=== PATIENT | female | born 1990 | race Caucasian/White ===

== ENCOUNTER 2018-07-30 16:27 | Day surgery (SDC) | payer OTHER ==
[2018-07-30 17:18] VITALS: BMI 37.0
--- NOTE | 2018-07-30 17:21 | PDOC.EVN ---
Event Note - Event Note Event Note: Patient seen at bedside. H&P dictated. ACOG Jun 2018 Gestational Hypertension and Preeclampsia data shared with the patient. Labs in process.
--- NOTE | 2018-07-30 17:35 | HP ---
TIME OF EVALUATION: 1654 until 170. LOCATION: Labor and Delivery in LDR bed 5. REASON FOR EVALUATION: The patient is sent from the office by Dr. Teague for blood pressure evaluation. EGA: 31 weeks and 6 days. EDC: September 25, 2018. HISTORY OF PRESENT ILLNESS: In brief, this is a 27-year-old, , 3, para 2 with two prior vaginal births. The first was complicated by preeclampsia and induction at 30 weeks, the second was spontaneous at 36 weeks with subsequent shoulder dystocia. It is thought that the gestational age calculation was incorrectly assigned at 36 weeks for this child as a birthweight was 8 pounds and 4 ounces. She has discussed a primary with her primary [facility] provider if this child goes to term. She was sent from the office to Labor and Delivery for blood pressure in the office of 150/90, and a history of preeclampsia in the past. She is on low-dose baby aspirin according to ACOG guidelines. She has no associated signs or symptoms. REVIEW OF SYSTEMS: Complete review of systems completed and as per HPI. PAST MEDICAL HISTORY: No diabetes, no chronic hypertension. ALLERGIES: VICODIN, WHICH GIVES HER SKIN RASH/ITCHING. 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 Her last obstetrical ultrasound was last week in the office and showed the baby in a cephalic presentation. PHYSICAL EXAMINATION: VITAL SIGNS: Blood pressure is 150/90, and she is afebrile. GENERAL: Clinically, she is in no acute distress. ABDOMEN: Soft, but no cervical exam was performed as she has no evidence of labor. monitor; heart tones were in the 140s to 150s with moderate variability. Tocodynamometer does not show any contraction pattern. The heart tracing is reactive for the gestational age as she is under 32 weeks. ASSESSMENT: This is a 27-year-old, , 3, para 2, at an EGA of 31 weeks and 6 days with a history of preeclampsia with her first delivery, who was sent for blood pressure of 150/90. She is on low-dose aspirin. She is here, asymptomatic, for a blood pressure evaluation and workup. PLAN: 1. I have discussed with her the ACOG guidelines and management plan for hypertension in . Delivery will be considered if blood pressure is persistent at greater than 160/110. I have also discussed magnesium sulfate and steroids for lung protection if induction is necessary. For now, we will do the following: a. Order CMP and CBC. b. Urine protein to creatinine ratio. c. Ultrasound will not be done because an ultrasound was done recently. If blood pressures are in the severe range, we may consider an ultrasound here for record. d. Steroids and magnesium sulfate will be given if severe and if delivery seemed eminent. 2. Again, the society of Maternal- Medicine and ACOG guidelines were discussed with her regarding hypertensive disorders of . Job ID: [id number] [id number]
[2018-07-30 17:46] LABS: Hemoglobin 12.5 g/dL (12.0-16.0); Mean Corpuscular HGB CONC 33.8 g/dL (32.0-36.0); Mean Corpuscular Hemoglobin 30.4 pg (27.0-31.0); Mean Corpuscular Volume 89.7 fL (78.0-98.0); Platelet Count 197 thou/uL (130-400); Red Blood Cell (RBC) Count 4.11 mill/uL (4.20-5.40); White Blood Cell (WBC) Count 10.1 thou/uL (4.8-10.8)
[2018-07-30 17:50] LABS: Creatinine, Urine 125.35 mg/dL (47-110)
[2018-07-30 18:04] LABS: ALT (SGPT) 15 U/L (8-55); AST (SGOT) 32 U/L (5-34); Albumin 3.7 g/dL (3.5-5.0); Alkaline Phosphatase 66 U/L (40-150); Anion Gap 16 mmol/L (10-20); BUN (Urea Nitrogen) 6 mg/dL (7.0-18.7); Bilirubin, Total Less than 0.2 mg/dL (0.2-1.2); Calc. Creatinine Clearance 212 mL/min (70-130); Calcium 9.2 mg/dL (7.8-10.44); Carbon Dioxide 18 mmol/L (22-29); Chloride 105 mmol/L (98-107); Estimated GFR-MDRD Greater than 90; Globulin 3.7 g/dL (2.4-3.5); Glucose 101 mg/dL (70-105); Potassium 4.1 mmol/L (3.5-5.1); Protein, Total 7.4 g/dL (6.0-8.3); Sodium 135 mmol/L (136-145)
--- NOTE | 2018-07-30 18:48 | PDOC.EVN ---
Event Note - Event Note Event Note: CBC and CMP normal UP: CR stable per Dr teague at 0.[address] Teague, do outpatient 24 hour urine collection and follow up in office Thursday
== END 2018-07-30 19:12 | disposition home or self-care (01) ==
LOC: L&D/OP 16:27
PROVIDERS: ATTEND Student in an Organized Health Care Education/Training Program
DX: O13.3 Gestational [pregnancy-induced] hypertension without significant proteinuria, third trimester (principal); O98.513 Other viral diseases complicating pregnancy, third trimester; B00.9 Herpesviral infection, unspecified; O99.343 Other mental disorders complicating pregnancy, third trimester; F41.9 Anxiety disorder, unspecified; Z3A.31 31 weeks gestation of pregnancy; Z88.5 Allergy status to narcotic agent; Z79.82 Long term (current) use of aspirin; Z79.899 Other long term (current) drug therapy
CPT/HCPCS: 36415; 80053; 82570; 84156; 85027; 86780; 87389

== ENCOUNTER 2018-08-02 17:28 | Inpatient (IN) | payer OTHER ==
[2018-08-02 18:04] VITALS: BMI 37.0
[2018-08-02] MEDS ORDERED: Promethazine HCl 25 MG/ML VIAL IM PRN (18:52)
[2018-08-02] MEDS ORDERED: Docusate 100 MG CAP PO PRN (18:52)
[2018-08-02] MEDS ORDERED: Ondansetron PF 4 MG/2 ML Vial IVP PRN (18:52)
[2018-08-02] MEDS ORDERED: Zolpidem Tartrate 5 MG TAB PO PRN (18:52)
[2018-08-02] MEDS ORDERED: Acetaminophen 500 MG TAB PO PRN ×2 (18:52→18:58)
--- NOTE | 2018-08-02 19:04 | PDOC.LDHP ---
Labor and Delivery H&P Chief complaint: other (elevated blood pressure and proteinuria) HPI: 27yo at 32w2d by LMP sent from clinic for elevated blood pressures in mild range and 3+ proteinuria on UA dip. Pt was evaluated last Thursday for PIH and had normal labs with PCR of 0.35 (baseline was 0.33). Pt was sent home with instructions to monitor BP and do 24hr urine. She collected her urine for 13 hours but even this she said she discarded some of the urine and total volume was 200cc. Slight dull DEMARCO. On baby ASA. Has hx of PIH in first delivered at 30wk. Current gestational age (weeks): 32 Due date: 09/25/18 Dating criteria: last menstrual period Grav: 3 Para: 2 OB History Details: h/o PIH delivered at 30w first h/o PTL delivered at 36w second c/b shoulder dystocia, no injury or 4th degree. Baby weighed 8lb4oz. Current complications: preeclampsia without severe features Abnormal US findings: No Past Medical History: Tourettes, Hypothyroidism, Hx HSV, Anxiety Current medications: pre- vitamins, other (levothyroxine 112mcg daily, methyldopa 250mg po bid, valtrex 500mg po bid, asa 81mg po daily) Previous surgical history: none Allergies/Adverse Reactions: Allergies Allergy/AdvReac Type Severity Reaction Status Date / Time hydrocodone [From Vicodin] AdvReac Verified 07/30/18 17:09 Social history: none - Physical Exam Vital signs reviewed and normal: yes General: NAD Heart: RRR Lungs: CTAB Abdomen: gravid Extremeties: no edema FHT: category 1 - OB Labs Blood type: O RH: positive Antibody Screen: negative HIV: negative RPR: negative HEPSAg: negative 1 hour GCT: positive 3 hour GTT: negative GBS: unknown Urine drug screen: negative Rubella: immune - Assessment Elevated blood pressures and proteinuria, rule out Preeclampsia - Plan -: PIH labs 24hr urine serial bps Dex for FLM Qshift NST, BPP/DIVYA while in house Cont home meds Ok for floor status.
[2018-08-02] MEDS ORDERED: Dexamethasone 4 mg/ml Vial ONE (19:42)
--- NOTE | 2018-08-02 19:49 | ULT ---
OB ULTRASOUND AND BIOPHYSICAL PROFILE: 08/02/2018 TECHNIQUE: Multiple longitudinal and transverse images of an intrauterine are obtained using a Multi-H ertz curvilinear transducer. FINDINGS: Real-time, color-flow, and spectral wave-form Doppler analysis demonstrates a viable intrauterine pre gnancy, with the fetus in a cephalic presentation. The placenta is anterior. No evidence of placent al abruption or previa seen. Cardiac activity measures 140 beats per minute. Cervical length measures 3.5 cm. Amniotic fluid index measures 7.9 cm. BIOMETRICS: BIPARIETAL DIAMETER: 82 mm (32 weeks 5 days) HEAD CIRCUMFERENCE: 288 mm (32 weeks 3 days) ABDOMINAL CIRCUMFERENCE: 280 mm (32 weeks 3 days) FEMUR LENGTH: 61 mm (31 weeks 4 days) COMPOSITE AGE: 32 weeks 0 days ESTIMATED DATE OF DELIVERY: 09/27/2018 ESTIMATED WEIGHT: 1925 g, plus or minus 285 g BIOPHYSICAL PROFILE: TONE: 2 BREATHIN MOVEMENT: 2 AMNIOTIC FLUID VOLUME: 2 COMPOSITE: 8/8 IMPRESSION: 1. Biophysical profile measures 8/8. 2. Cardiac activity is visualized. The fetus is in a cephalic presentation and is viable. POS: [facility]
--- NOTE | 2018-08-02 19:49 | ULT ---
Please see accompanying dictation for OB ultrasound. Biophysical profile measures 02/03. POS: [facility]
[2018-08-02] MEDS: Dexamethasone 4 mg/ml Vial IM SCH (19:51)
[2018-08-02 20:18] LABS: Hemoglobin 11.9 g/dL (12.0-16.0); Mean Corpuscular HGB CONC 34.8 g/dL (32.0-36.0); Mean Corpuscular Hemoglobin 30.8 pg (27.0-31.0); Mean Corpuscular Volume 88.5 fL (78.0-98.0); Platelet Count 210 thou/uL (130-400); RBC Distribution Width 12.1 % (11.5-14.5); Red Blood Cell (RBC) Count 3.87 mill/uL (4.20-5.40); White Blood Cell (WBC) Count 11.9 thou/uL (4.8-10.8)
[2018-08-02 20:40] LABS: ALT (SGPT) 9 U/L (8-55); AST (SGOT) 13 U/L (5-34); Albumin 3.7 g/dL (3.5-5.0); Alkaline Phosphatase 68 U/L (40-150); Anion Gap 13 mmol/L (10-20); BUN (Urea Nitrogen) 5 mg/dL (7.0-18.7); Bilirubin, Total 0.3 mg/dL (0.2-1.2); Calc. Creatinine Clearance 224 mL/min (70-130); Carbon Dioxide 24 mmol/L (22-29); Chloride 104 mmol/L (98-107); Estimated GFR-MDRD Greater than 90; Globulin 3.1 g/dL (2.4-3.5); Glucose 76 mg/dL (70-105); Potassium 3.7 mmol/L (3.5-5.1); Protein, Total 6.8 g/dL (6.0-8.3); Sodium 137 mmol/L (136-145)
[2018-08-02 20:59] LABS: Syphilis Antibody Nonreactive (Nonreactive); Syphilis Antibody Index 0.04 S/CO (<1.00 Non-Reactive)
[2018-08-02] MEDS ORDERED: Levothyroxine Sodium 112 MCG TAB PO SCH (21:30)
[2018-08-02] MEDS: valACYclovir 500 MG TAB PO SCH (22:25)
[2018-08-03 01:20] LABS: HBSAg Index 0.21 S/CO (0-0.99); Hep B Surf Ag Non-Reactive S/CO (NonReactive)
--- NOTE | 2018-08-03 07:46 | PDOC.EVN ---
Event Note - Event Note Event Note: HD #2 S: Pt denies PIH sx. Good FM, no VB LOF. Has had incr in ctx overnight and c/ o heartburn. O: VSSAF, BP all wnl NAD RRR CTAB S/nt/gravid No e/c/c NST pending this am A/P 27yo at 32w3d by LMP here for r/o PIH BP wnl, no sx PIH, labs wnl 24hr urine in progress, clinic UA with 3+ protein yesterday Cont q shift NST, DIVYA S=D, nl KIRSTIE ceph, BPP 10/10 Dex 2/4 this am for FLM If remains stable once 24hr urine finished will DC home with close outpt follow up and return for completion of dexamethasone injections
[2018-08-03] MEDS: Dexamethasone 4 mg/ml Vial IM SCH ×2 (08:25→18:29)
[2018-08-03] MEDS: valACYclovir 500 MG TAB PO SCH (08:26)
[2018-08-03] MEDS ORDERED: Prenatal Vitamin 1 TAB PO SCH (09:00)
[2018-08-03 16:19] VITALS: BP 127/70; TEMP 98.3
[2018-08-03 17:10] LABS: Urine Total Volume 2675 mL (600-1600)
[2018-08-03 17:38] LABS: Protein - 24 Hr 455 mg/24 hr (Less than 300); Protein, Urine 17 mg/dL (1-14)
[2018-08-03 17:39] LABS: 24 Hr Creatinine 1184.76 mg/24 hr (710-1650); Creatinine, Urine 44.29 mg/dL (47-110)
[2018-08-03] MEDS ORDERED: Levothyroxine Sodium 112 MCG TAB PO SCH (21:00)
== END 2018-08-03 18:38 | disposition home or self-care (01) | DRG 832 ==
LOC: L&D/OP 17:28 → 3SE 19:41
PROVIDERS: ADMIT Student in an Organized Health Care Education/Training Program; ATTEND Student in an Organized Health Care Education/Training Program
DX: O14.93 Unspecified pre-eclampsia, third trimester (principal); O98.513 Other viral diseases complicating pregnancy, third trimester; Z3A.32 32 weeks gestation of pregnancy; O99.283 Endocrine, nutritional and metabolic diseases complicating pregnancy, third trimester; E03.9 Hypothyroidism, unspecified; O99.343 Other mental disorders complicating pregnancy, third trimester; F41.9 Anxiety disorder, unspecified; O99.353 Diseases of the nervous system complicating pregnancy, third trimester; B00.9 Herpesviral infection, unspecified; F95.2 Tourette's disorder; Z79.899 Other long term (current) drug therapy; Z88.8 Allergy status to other drugs, medicaments and biological substances
CPT/HCPCS: 36415; 59025; 76805; 76819; 80053; 82570; 84156; 85027; 86780; 86850; 86900; 86901; 87081; 87340; 87389; 99284; 99285; J1100

== ENCOUNTER 2018-08-04 08:04 | Day surgery (SDC) | payer OTHER ==
[2018-08-04 08:48] VITALS: BMI 34.2
[2018-08-04] MEDS ORDERED: Betamet Acet/Betamet Na Ph 30 MG/5 ML VIAL IM SCH (09:00)
[2018-08-04] MEDS ORDERED: Dexamethasone 4 mg/ml Vial ONE ×2 (09:01→09:18)
== END 2018-08-04 09:05 | disposition home health service (06) ==
LOC: L&D/OP 08:04
PROVIDERS: ATTEND Student in an Organized Health Care Education/Training Program
DX: Z29.8 Encounter for other specified prophylactic measures (principal); Z79.82 Long term (current) use of aspirin; Z79.899 Other long term (current) drug therapy; Z88.5 Allergy status to narcotic agent
CPT/HCPCS: 96372; 99282; J1100

== ENCOUNTER 2018-08-16 00:28 | Inpatient (IN) | payer OTHER ==
[2018-08-16 01:14] VITALS: BMI 37.4
[2018-08-16] MEDS ORDERED: NIFEdipine 10 MG CAP ONE (01:27)
[2018-08-16] MEDS ORDERED: NIFEdipine 10 MG CAP PO SCH (01:30)
[2018-08-16] MEDS ORDERED: Calcium Gluc 4.6 MEQ/10 ML (100 MG/ML) SLOW IVP PRN (01:32)
[2018-08-16] MEDS ORDERED: Promethazine HCl 25 MG/ML VIAL IM PRN ×2 (01:32→18:29)
--- NOTE | 2018-08-16 01:38 | PDOC.LDHP ---
Labor and Delivery H&P Chief complaint: other (States incresaing BPs Ptaint of Dr Ho CAMACHO: 34 weeks 2 days) HPI: Patient is a 27 yo with EDC 09/25 with "increasing BPs". Here for eval. BP here was 170/90-177/90. No acute sxs. Good FM, no VB, no LOF. States was breech last check. Review of systems: complete ROS performed and as per HPI Current gestational age (weeks): 34 (2 days) Due date: 09/25/18 Grav: 3 Para: 2 OB History Details: X 2, HX preeclampsia with first at 30 weeks; second was PTB at 36 weeks Current complications: preeclampsia with severe features Abnormal US findings: Yes (States was breech) Current medications: pre-anjel vitamins Previous surgical history: none Allergies/Adverse Reactions: Allergies Allergy/AdvReac Type Severity Reaction Status Date / Time hydrocodone [From Vicodin] AdvReac Verified 07/30/18 17:09 - Physical Exam Abnormal vital signs: 170s/90s General: NAD Heart: RRR Lungs: CTAB Abdomen: gravid Extremeties: no edema FHT: category 1 [place] contractions every: few/rare - Assessment Severe Preeclampsia at 34 weeks 2 days per BP criteria. - Plan Plan: admit to L&D, GBS antibiotic prophylaxis (if labor induction), informed consent obtained, magnesium for seizure prophylaxis (Mag will start with induction or 1 hpour prior to CS if confirmed still breech), anesthesia consult for pain management, other (I have ordered nifedipine for BP now (10mg po x1). I have ordered CMP, CBC. UP will not affect care at this point as severe based on BPs. Steroids already given previously. I have ordered sono for EFW, and presentation, placenta check. If breech, we will manage BP first, and plan for first CS in the AM once maternal condition stable. If cephalic, induce and give GBS coverage.)
[2018-08-16] MEDS ORDERED: Magnesium Sulfate 20 GM/WATER 500 ML BAG IVPB SCH (01:45)
[2018-08-16] MEDS ORDERED: Penicillin G Potassium 5 MILL.UNITS in Sodium Chloride 0.9% 100 ML IVPB SCH (02:00)
--- NOTE | 2018-08-16 02:07 | PDOC.EVN ---
Event Note - Event Note Event Note: Sono: cephalic EFW 2254gramns, 5# We will check cervix and now that head down...we will plan on induction. Pit vs cytotec based on cervical exam (pending). We will start Mag prior to induction GBS negative confirmed by office lab check
[2018-08-16] MEDS: Lactated Ringer's 1,000 ML IV SCH ×2 (03:45→13:31)
[2018-08-16 04:10] LABS: Hemoglobin 11.6 g/dL (12.0-16.0); Mean Corpuscular HGB CONC 34.3 g/dL (32.0-36.0); Mean Corpuscular Hemoglobin 30.6 pg (27.0-31.0); Mean Corpuscular Volume 89.1 fL (78.0-98.0); Mean Platelet Volume 7.5 fL (7.4-10.4); Platelet Count 190 thou/uL (130-400); RBC Distribution Width 12.5 % (11.5-14.5); White Blood Cell (WBC) Count 13.2 thou/uL (4.8-10.8)
[2018-08-16] MEDS: Misoprostol 100 MCG TAB VAG SCH ×3 (04:15→12:20)
[2018-08-16 04:24] LABS: ALT (SGPT) 8 U/L (8-55); AST (SGOT) 12 U/L (5-34); Albumin 3.7 g/dL (3.5-5.0); Alkaline Phosphatase 83 U/L (40-150); Anion Gap 16 mmol/L (10-20); BUN (Urea Nitrogen) 5 mg/dL (7.0-18.7); Bilirubin, Total 0.3 mg/dL (0.2-1.2); Calc. Creatinine Clearance 234 mL/min (70-130); Calcium 8.9 mg/dL (7.8-10.44); Carbon Dioxide 18 mmol/L (22-29); Chloride 103 mmol/L (98-107); Estimated GFR-MDRD Greater than 90; Globulin 2.5 g/dL (2.4-3.5); Glucose 95 mg/dL (70-105); Potassium 3.2 mmol/L (3.5-5.1); Protein, Total 6.2 g/dL (6.0-8.3); Sodium 134 mmol/L (136-145)
[2018-08-16 04:42] LABS: HBSAg Index 0.24 S/CO (0-0.99); HIV (1/2) Antibody/Antigen Non-Reactive (NonReactive); HIV 1/2 INDEX 0.07 S/CO (<1.00); Hep B Surf Ag Non-Reactive S/CO (NonReactive)
[2018-08-16 04:48] LABS: Syphilis Antibody Nonreactive (Nonreactive); Syphilis Antibody Index 0.04 S/CO (<1.00 Non-Reactive)
[2018-08-16] MEDS ORDERED: Penicillin G 2.5 MILL.units 2.5 MILL.UNITS in Premix Bag 1 BAG IVPB SCH (05:00)
[2018-08-16] MEDS: Butorphanol Tartrate 1 MG/ML VIAL SLOW IVP PRN ×2 (06:04→08:14)
--- NOTE | 2018-08-16 08:05 | PDOC.LDPN ---
Labor & Delivery Progress Note - Subjective Subjective: comfortable - Objective Vital signs reviewed and normal: yes (Normal BP this am, UOP 200-400cc/hr) General: NAD Uterine fundus: non tender Dilation: 1.5 Effacement: 50% Station: -3 FHT: category 1 [place] contractions every: q8min Other exam findings: DTR 2+ -: 27yo at 34w1d by LMP with severe PEC IOL s/p cytotec x 1, cont ripening this am f/b pitocin/arom Severe PIH On mag, no s/sx mag toxicity or PIH, labs wnl, BP normal, s/p po procardia x 1 at 0100 IUP s/p BMZ x 2 EFW 2200gm, ceph on sono GBS neg H/o HSV on valtrex ppx, no prodrome, no lesions on exam Cont current care
[2018-08-16] MEDS ORDERED: Potassium Chloride 20 MEQ TAB PO SCH (08:15)
--- NOTE | 2018-08-16 09:10 | ULT ---
PRELIMINARY REPORT/[facility]/EMERGENTY AFTER-HOURS PROCEDURE US , Limited EXAM DATE/TIME: 08/16/2018 1:51 AM CLINICAL HISTORY: 27 years old, female; Signs and symptoms; Lmp or gestational age (in weeks): 34w1d; Other: Pih, eval position and efw for delivery; TECHNIQUE: Real-time ultrasound of the maternal uterus with image documentation. Exam focused on the cl inical indication. COMPARISON: No relevant prior studies available. FINDINGS: GESTATION: Gestation: Single live intrauterine gestation. Heart rate: heart rate 135 beats per minute. Presentation: position is vertex. Placenta: Placenta is anterior and unremarkable. Amniotic fluid: Amniotic fluid volume is normal with an KIRSTIE of 12.4 cm based on 3 visible pockets. BIOMETRY: Estimated gestational age: biometry measurements are compatible with estimated gestational age of 33 weeks 3 days. Estimated weight: Estimated weight is 2257 g. IMPRESSION: Single live intrauterine gestation as above. Thank you for allowing us to participate in the care of your patient. Dictated and Authenticated by: Jesse Calderon MD FINAL REPORT OB ULTRASOUND: Final report. Preliminary exam was performed by [facility]. I concur with the dictation from [facility]. There is a viable intrauterine . Cardi ac activity is detected measuring 135 b.p.m. The placenta is anterior. Estimated gestational age is 33 weeks 3 days with estimated date of delivery of 10/01/2018. Estimated weight is 2257 gm +/- 334 gm. Amniotic fluid index measures 12.4 cm. POS: [facility]
[2018-08-16] MEDS ORDERED: Bupivacaine HCl 0.25%/Epi 0.0005/PF 10 ML VIAL FS ONE (11:11)
[2018-08-16] MEDS ORDERED: Acetaminophen 500 MG TAB PO PRN (11:57)
[2018-08-16] MEDS: Magnesium Sulfate 20 gm/500 ml 20 GM/500 ML BAG IVPB SCH ×2 (12:25→22:58)
[2018-08-16] MEDS ORDERED: NS w/ Oxytocin 10 units 500 ML ONE (17:07)
--- NOTE | 2018-08-16 17:27 | PDOC.LDPN ---
Labor & Delivery Progress Note - Subjective Subjective: painful contractions - Objective Vital signs reviewed and normal: yes General: NAD Uterine fundus: non tender Dilation: 3 Effacement: 25% Station: -3 FHT: category 1 [place] contractions every: 6-8min AROM: clear fluid Plan: labor augmentation, pitocin for augmentation -: BP normal, no sx PIH, on mag, no sx toxicity, cont mag for sz ppx Pt requests epidural now, start pitocin
[2018-08-16] MEDS ORDERED: Fentanyl 4 mcg/Bup 0.1% Cadd 100 ML ONE (17:41)
[2018-08-16] MEDS ORDERED: NS w/ Oxytocin 10 units 500 ML IV SCH (17:45)
[2018-08-16] MEDS ORDERED: Lidocaine 1.5%/Epinephrine 1:200,000 5 ML AMPUL IJ ONE (18:07)
[2018-08-16] MEDS ORDERED: Fentanyl 100 MCG/2 ML VIAL ONE (18:07)
[2018-08-16] MEDS ORDERED: diphenhydrAMINE 50 MG/ML VIAL IVP PRN (18:29)
[2018-08-16] MEDS ORDERED: Eucerin (Mineral Oil/Petrolatum,White) 30 gm Jar TOP PRN (18:29)
[2018-08-16] MEDS ORDERED: Ondansetron PF 4 MG/2 ML Vial IVP PRN (18:29)
[2018-08-16] MEDS ORDERED: Lactated Ringer's 500 ML IV PRN (18:29)
[2018-08-16] MEDS ORDERED: ePHEDrine/0.9% NaCl/PF SYRINGE 50 mg/10 ml SLOW IVP PRN (18:29)
[2018-08-16] MEDS ORDERED: Naloxone HCl 0.4 mg/ml Vial IVP PRN ×2 (18:29)
[2018-08-16] MEDS ORDERED: Acetaminophen 325 MG TAB PO PRN (18:29)
[2018-08-16] MEDS ORDERED: Fentanyl 4 mcg/Bupivacaine 0.1% Cassette 100 ML EPIDURAL SCH (18:30)
[2018-08-16] MEDS ORDERED: Communication Order-Pharmacy FS SCH (18:30)
[2018-08-17] MEDS ORDERED: Fentanyl 4 mcg/Bup 0.1% Cadd 100 ML ONE (00:06)
[2018-08-17] MEDS ORDERED: Lidocaine 1% (PF) 30 ML VIAL ONE (02:39)
[2018-08-17] MEDS ORDERED: Oxytocin 10 UNITS/ML VIAL ONE (02:58)
--- NOTE | 2018-08-17 03:10 | PDOC.OPDEL ---
OB Operative/Delivery Note Delivery Dr/Surgeon: Ho Assist: n/a Pre-Delivery Diagnosis: medically indicated induction Procedure/Post Delivery Dx: spontaneous vaginal delivery Weeks gestation: 34 Anesthesia: epidural - Findings A Sex: female - Additional Findings/Plan Placenta delivered: spontaneous Repaired Obstetrical Laceration: none Estimated blood loss: 200cc Post delivery plan: recovery in LICU (Mag recovery)
[2018-08-17] MEDS ORDERED: NS / Oxytocin 40 units/1000ml 1,000 ML IV SCH ×2 (03:30→04:16)
[2018-08-17] MEDS ORDERED: Adacel (T-DAP) 0.5 ML SYRINGE IM ONE (04:16)
[2018-08-17] MEDS ORDERED: Preparation H Ointment 28 GM TUBE PR PRN (04:16)
[2018-08-17] MEDS ORDERED: Benzocaine/Menthol 20-0.5% 60 ML CAN TOP PRN (04:16)
[2018-08-17] MEDS ORDERED: diphenhydrAMINE 25 MG CAP PO PRN (04:16)
[2018-08-17] MEDS ORDERED: Bisacodyl 10 MG SUPP PR PRN (04:16)
[2018-08-17] MEDS ORDERED: Milk Of Magnesia 30 ML UDCUP PO PRN (04:16)
[2018-08-17] MEDS ORDERED: Ondansetron PF 4 MG/2 ML Vial IVP PRN (04:16)
[2018-08-17] MEDS ORDERED: HYDROcodone/Acetaminophen 5/325 mg Tablet PO PRN ×2 (04:16)
[2018-08-17] MEDS: Ibuprofen 800 MG TAB PO SCH ×3 (04:34→21:42)
[2018-08-17] MEDS ORDERED: Levothyroxine Sodium 112 MCG TAB PO SCH ×2 (08:15→08:30)
[2018-08-17] MEDS: Magnesium Sulfate 20 gm/500 ml 20 GM/500 ML BAG IVPB SCH ×2 (08:45→19:16)
[2018-08-17] MEDS: Docusate Calcium (SURFAK) 240 MG CAP PO SCH ×2 (12:27→21:40)
[2018-08-17] MEDS: Prenatal Vitamin 1 TAB PO SCH (12:27)
[2018-08-17] MEDS: Ferrous Sulfate 325 MG TAB PO SCH ×2 (12:29→20:05)
--- NOTE | 2018-08-17 13:26 | PDOC.PP ---
Post Progress Note Post Day #: 0 PO intake tolerated: yes Flatus: no Ambulation: no Weight Weight 198 lb - Physical Examination General: NAD Respiratory: non-labored breathing Abdominal: no distention, appropriately TTP Fundus firm & at: umb Extremities: negative homans (B) Neurological: no gross focal deficits Psychiatric: normal affect Result Diagrams: 08/16/18 03:45 08/16/18 03:45 Additional Labs: Post Labs Blood Type O POSITIVE 08/16/18 03:45 Hep Bs Antigen Non-Reactive S/CO (NonReactive) 08/16/18 03:45 - Assessment/Plan PPD0 s/p PTSVD at 34w 2/2 Severe PIH PIH- BP nl-mild no sx PIH, on Mag, up at 0300, no sx toxicity, good diuresis > 100cc/hr. May need BP meds once Mag DCd Doing well otherwise , edwina diet. Breastpumping, in NICU Cont home meds for thyroid, tourettes, depression Cont LICU care, transfer to floor once Mag off.
[2018-08-17] MEDS: Lactated Ringer's 1,000 ML IV SCH ×2 (17:52)
[2018-08-18] MEDS ORDERED: Levothyroxine Sodium 112 MCG TAB PO SCH ×2 (06:00→21:00)
[2018-08-18] MEDS: Ibuprofen 800 MG TAB PO SCH ×3 (06:35→21:28)
[2018-08-18] MEDS: Lactated Ringer's 1,000 ML IV SCH (06:49)
[2018-08-18] MEDS: Ferrous Sulfate 325 MG TAB PO SCH ×2 (07:26→17:30)
--- NOTE | 2018-08-18 07:34 | PDOC.PP ---
Post Progress Note Post Day #: 2 PO intake tolerated: yes Flatus: yes Ambulation: yes Vital Signs (12 hours) Temp Pulse Resp BP Pulse Ox 08/18/18 06:25 98.1 F 74 18 143/80 H 99 Weight Weight 198 lb - Physical Examination General: NAD Respiratory: non-labored breathing Abdominal: no distention, appropriately TTP Fundus firm & at: umb-2 Skin: no rash Neurological: no gross focal deficits Psychiatric: normal affect Result Diagrams: 08/16/18 03:45 08/16/18 03:45 Additional Labs: Post Labs Blood Type O POSITIVE 08/16/18 03:45 Hep Bs Antigen Non-Reactive S/CO (NonReactive) 08/16/18 03:45 - Assessment/Plan PPD1 s/p PTSVD at 34w 2/2 Severe PIH. Bp mild, no sx PIH, s/p mag. Start procardia XL 30mg po daily. Baby in NICU doing well. Rh pos RImm Cont PP care, home tomorrow.
[2018-08-18] MEDS: Prenatal Vitamin 1 TAB PO SCH (08:45)
[2018-08-18] MEDS: Docusate Calcium (SURFAK) 240 MG CAP PO SCH ×2 (08:46→21:28)
[2018-08-18] MEDS: NIFEdipine XL 30 MG TAB PO SCH (08:46)
[2018-08-18] MEDS: Misoprostol 100 MCG TAB VAG SCH (09:47)
[2018-08-19] MEDS: Ibuprofen 800 MG TAB PO SCH (05:54)
[2018-08-19 07:48] VITALS: BP 141/79; TEMP 98.4
--- NOTE | 2018-08-19 07:55 | PDOC.PP ---
Post Progress Note Post Day #: 2 PO intake tolerated: yes Flatus: yes Ambulation: yes Vital Signs (12 hours) Temp Pulse Resp BP BP Pulse Ox 08/19/18 07:47 98.4 F 68 20 141/79 H 98 08/19/18 02:15 98.0 F 57 L 17 138/79 08/18/18 21:29 136/76 08/18/18 20:35 98.3 F 64 18 136/76 08/18/18 20:00 97 Weight Weight 198 lb - Physical Examination General: NAD Respiratory: non-labored breathing Abdominal: no distention, appropriately TTP Extremities: negative homans (B) Skin: no rash Neurological: no gross focal deficits Psychiatric: normal affect Result Diagrams: 08/16/18 03:45 08/16/18 03:45 Additional Labs: Post Labs Blood Type O POSITIVE 08/16/18 03:45 Hep Bs Antigen Non-Reactive S/CO (NonReactive) 08/16/18 03:45 - Assessment/Plan PPD2 s/p PTSVD at 34w 2/2 severe PIH VSSAF BP nl-mild on procardia xl 30mg, will cont on DC, no sx PIH. Met all milestones infant in NICU, breastpumping DC home FU 2w for BP check
[2018-08-19] MEDS: Ferrous Sulfate 325 MG TAB PO SCH (09:17)
[2018-08-19] MEDS: Prenatal Vitamin 1 TAB PO SCH (09:18)
[2018-08-19] MEDS: Docusate Calcium (SURFAK) 240 MG CAP PO SCH (09:18)
[2018-08-19] MEDS: NIFEdipine XL 30 MG TAB PO SCH (09:20)
== END 2018-08-19 13:00 | disposition home or self-care (01) | DRG 807 ==
LOC: L&D/OP 00:28 → L&D 05:59 → 3SW 08-18 06:22
PROVIDERS: ADMIT Student in an Organized Health Care Education/Training Program; ATTEND Student in an Organized Health Care Education/Training Program
PROC: 10E0XZZ Delivery of Products of Conception, External Approach (ICD-10-PCS; principal; 2018-08-16)
PROC: 10907ZC Drainage of Amniotic Fluid, Therapeutic from Products of Conception, Via Natural or Artificial Opening (ICD-10-PCS; 2018-08-16)
DX: O13.4 Gestational [pregnancy-induced] hypertension without significant proteinuria, complicating childbirth (principal); Z37.0 Single live birth; O60.14X0 Preterm labor third trimester with preterm delivery third trimester, not applicable or unspecified; Z3A.34 34 weeks gestation of pregnancy; Z88.5 Allergy status to narcotic agent; Z86.19 Personal history of other infectious and parasitic diseases
CPT/HCPCS: 36415; 51702; 76805; 80053; 81003; 82043; 84156; 85025; 85027; 86780; 86850; 86900; 86901; 87340; 87389; 88307; 99285; C1726; J0595; J2001; J2590; J3010; J3475; J3490